=== PATIENT | female | born 1940 | race Caucasian/White ===

== ENCOUNTER 2020-11-19 21:25 | Inpatient (IN) ==
[2020-11-19 22:56] LABS: Mean Platelet Volume 9.3 fL (9.4-12.4); Platelet Count 225 K/mcL (140-400)
[2020-11-19 22:58] LABS: Hematocrit 32.5 % (35.3-44.9); Hemoglobin 10.2 g/dL (11.5-15.4); Mean Corpuscular HGB Conc 31.4 g/dL (31.6-35.5); Mean Corpuscular Hemoglobin 30.7 pg (28.0-33.3); Mean Corpuscular Volume 97.9 fL (83.0-100.0); Red Blood Count 3.32 M/mcL (3.82-4.97); Red Cell Distribution Width 13.4 % (11.5-14.5)
[2020-11-19 23:17] LABS: Alanine Aminotransferase 10 Units/L (7-52); Albumin 3.7 g/dL (3.5-5.7); Albumin/Globulin Ratio 1.6 (1.1-2.2); Alkaline Phosphatase 108 Units/L (34-104); Aspartate Amino Transferase 12 Units/L (13-39); BUN/Creatinine Ratio 24 (6-26); Bilirubin,Direct 0.4 mg/dL (0.0-0.2); Bilirubin,Indirect 0.5 mg/dL (0.0-1.0); Bilirubin,Total 0.9 mg/dL (0.3-1.0); Blood Urea Nitrogen 38 mg/dL (8-23); Calcium 8.5 mg/dL (8.6-10.3); Carbon Dioxide 20 mEq/L (23-29); Chloride 105 mEq/L (98-107); Creatine Kinase 116 Units/L (30-223); Globulin 2.3 g/dL (2.4-3.5); Glucose 152 mg/dL (70-105); Magnesium 2.3 mg/dL (1.6-2.6); Osmolality,Calculated 294 (280-300); Potassium 3.7 mEq/L (3.5-5.1); Sodium 136 mEq/L (136-145); Troponin I < 0.03 ng/mL (< 0.04); eGFR For African Americans 38 (> 60); eGFR For Non-African Americans 32 (> 60)
[2020-11-19] MEDS ORDERED: 0.9 % Sodium Chloride 1,000 ML IVC ONE (23:27)
[2020-11-19 23:30] LABS: Thyroid Stimulating Hormone 1.545 mcIU/mL (0.340-5.600)
[2020-11-20 00:30] LABS: Basophils % 0.1 %; Eosinophils % 0.1 %; Monocytes % 5.1 %
[2020-11-20 00:32] LABS: Basophils # 0.1 K/mcL (0.0-0.2); Eosinophils # 0.1 K/mcL (0.0-0.6); Hematocrit 31.2 % (35.3-44.9); Hemoglobin 9.7 g/dL (11.5-15.4); Immature Granulocytes % 1.2 % (0-4); Lymphocytes # 36.8 K/mcL (0.6-4.6); Lymphocytes % 67.7 %; Mean Corpuscular HGB Conc 31.1 g/dL (31.6-35.5); Mean Corpuscular Hemoglobin 30.4 pg (28.0-33.3); Mean Corpuscular Volume 97.8 fL (83.0-100.0); Mean Platelet Volume 9.7 fL (9.4-12.4); Monocytes # 2.8 K/mcL (0.0-1.3); Platelet Count 214 K/mcL (140-400); Red Blood Count 3.19 M/mcL (3.82-4.97); Red Cell Distribution Width 13.2 % (11.5-14.5); Segmented Neutrophils % 25.8 %
[2020-11-20 00:35] LABS: White Blood Count 54.4 K/mcL (4.3-11.1)
[2020-11-20 01:05] LABS: Anisocytosis 1+ (Not Present); Platelet Estimate Normal (Normal); Reactive Lymphocytes Present (Not Present); Smudge Cells Present (Not Present)
[2020-11-20] MEDS ORDERED: cefTRIAXone 1,000 MG in 0.9 % Sodium Chloride Mini Bag 100 ML IVPB ONE (01:34)
[2020-11-20] MEDS ORDERED: Azithromycin 500 MG in 0.9 % Sodium Chloride 250 ML IVPB ONE (01:34)
[2020-11-20 02:02] LABS: Bacteria,Urine Moderate per hpf (None-Few); Bilirubin,Urine Negative (Negative); Blood,Urine Moderate (Negative); Clarity,Urine Ex.Turbid (Clear); Color,Urine Yellow (Yellow); Glucose,Urine (UA) Normal (Normal); Ketones,Urine Negative (Negative); Leukocyte Esterase,Urine Large (Negative); Mucus,Urine Moderate per lpf (None-Few); Nitrite,Urine Negative (Negative); Protein,Urine >=300 mg/dL (Neg-Trace); RBC,Urine 15-30 per hpf (0-3); Specific Gravity,Urine 1.019 (1.010-1.025); Squamous Epithelial Cell,Urine Few per hpf (None-Few); Urobilinogen,Urine Normal (Normal); WBC,Urine TNTC per hpf (0-3)
[2020-11-20] MEDS ORDERED: Ondansetron ODT 4 MG TAB.RAPDIS SL PRN (02:23)
[2020-11-20] MEDS ORDERED: Naloxone 0.4 MG/ML INJ IVP PRN (02:23)
[2020-11-20] MEDS: 0.9 % Sodium Chloride 1,000 ML IVC SCH ×2 (04:02→15:49)
[2020-11-20 05:23] LABS: Basophils # 0.1 K/mcL (0.0-0.2); Basophils % 0.3 %; Eosinophils % 0.1 %; Hematocrit 28.9 % (35.3-44.9); Hemoglobin 9.1 g/dL (11.5-15.4); Immature Granulocytes % 0.9 % (0-4); Lymphocytes # 22.6 K/mcL (0.6-4.6); Lymphocytes % 58.9 %; Mean Corpuscular HGB Conc 31.5 g/dL (31.6-35.5); Mean Corpuscular Hemoglobin 30.1 pg (28.0-33.3); Mean Corpuscular Volume 95.7 fL (83.0-100.0); Mean Platelet Volume 9.4 fL (9.4-12.4); Monocytes % 6.1 %; Neutrophils # 12.9 K/mcL (1.6-8.9); Nucleated Red Blood Cells 0.1 /100 WBC (0); Platelet Count 208 K/mcL (140-400); Red Blood Count 3.02 M/mcL (3.82-4.97); Red Cell Distribution Width 13.5 % (11.5-14.5); Segmented Neutrophils % 33.7 %
[2020-11-20 05:28] LABS: Monocytes # 2.3 K/mcL (0.0-1.3); White Blood Count 38.4 K/mcL (4.3-11.1)
[2020-11-20 05:41] LABS: Anisocytosis 1+ (Not Present); Platelet Estimate Normal (Normal); Reactive Lymphocytes Present (Not Present); Smudge Cells Present (Not Present)
[2020-11-20 05:42] LABS: Calcium 7.9 mg/dL (8.6-10.3); Magnesium 1.9 mg/dL (1.6-2.6); Phosphorous 2.6 mg/dL (2.7-4.5); Potassium 3.8 mEq/L (3.5-5.1)
[2020-11-20] MEDS ORDERED: Potassium Phosphate 44 MEQ in 0.9 % Sodium Chloride 250 ML IVPB ONE (08:03)
[2020-11-20] MEDS: cefTRIAXone 1,000 MG in Water for inj. (sterile) 10 ML IVP SCH (20:56)
[2020-11-20] MEDS: Gabapentin 300 MG CAPSULE PO SCH (20:56)
[2020-11-21] MEDS: Levalbuterol Neb 1.25 MG/3 ML IH PRN ×2 (04:39→14:19)
[2020-11-21 07:06] LABS: Mean Corpuscular HGB Conc 31.1 g/dL (31.6-35.5); Mean Platelet Volume 9.5 fL (9.4-12.4)
[2020-11-21 07:07] LABS: Immature Reticulocyte % 14.3 % (11.0-38.0); Retculocyte # 0.02 M/mcL (0.05-0.10); Reticulocyte % 0.9 % (1.6-2.8)
[2020-11-21 07:08] LABS: Hemoglobin 8.4 g/dL (11.5-15.4); Mean Corpuscular Hemoglobin 30.7 pg (28.0-33.3); Mean Corpuscular Volume 98.5 fL (83.0-100.0); Platelet Count 200 K/mcL (140-400); Red Blood Count 2.74 M/mcL (3.82-4.97); Red Cell Distribution Width 13.8 % (11.5-14.5)
[2020-11-21 07:16] LABS: White Blood Count 34.5 K/mcL (4.3-11.1)
[2020-11-21 07:26] LABS: Lymphocytes # 17.9 K/mcL (0.6-4.6); Monocytes # 1.4 K/mcL (0.0-1.3); Neutrophils # 15.2 K/mcL (1.6-8.9); Platelet Estimate Normal (Normal); Smudge Cells Present (Not Present)
[2020-11-21 07:27] LABS: Calcium 7.3 mg/dL (8.6-10.3); Potassium 3.9 mEq/L (3.5-5.1); Reactive Lymphocytes Present (Not Present)
[2020-11-21 07:32] LABS: Iron < 10 mcg/dL (50-170); Lactate Dehydrogenase 139 Units/L (140-271); Transferrin 132 mg/dL (203-362)
[2020-11-21 07:59] LABS: Ferritin 201 ng/mL (10-120)
[2020-11-21] MEDS ORDERED: 0.9 % Sodium Chloride 500 ML IVC ONE (08:01)
[2020-11-21 08:27] LABS: Magnesium 1.9 mg/dL (1.6-2.6); Phosphorous 2.7 mg/dL (2.7-4.5)
[2020-11-21] MEDS: Iron Sucrose Complex 250 MG in 0.9 % Sodium Chloride 250 ML IVPB SCH (08:49)
[2020-11-21] MEDS: Gabapentin 300 MG CAPSULE PO SCH ×2 (08:50→20:51)
[2020-11-21] MEDS: 0.9 % Sodium Chloride 1,000 ML IVC SCH ×2 (09:12→17:04)
[2020-11-21] MEDS: *HR* Heparin 5,000 UNIT/ML VIAL SQ SCH (17:05)
[2020-11-21] MEDS: cefTRIAXone 1,000 MG in Water for inj. (sterile) 10 ML IVP SCH (20:51)
[2020-11-21] MEDS: Melatonin 3 MG TABLET PO PRN (23:15)
[2020-11-22 06:08] LABS: Mean Corpuscular Hemoglobin 30.2 pg (28.0-33.3)
[2020-11-22 06:10] LABS: Basophils # 0.1 K/mcL (0.0-0.2); Basophils % 0.3 %; Eosinophils # 0.3 K/mcL (0.0-0.6); Eosinophils % 1.2 %; Hematocrit 27.7 % (35.3-44.9); Hemoglobin 8.7 g/dL (11.5-15.4); Immature Granulocytes % 1.4 % (0-4); Lymphocytes # 17.9 K/mcL (0.6-4.6); Lymphocytes % 63.5 %; Mean Corpuscular HGB Conc 31.4 g/dL (31.6-35.5); Mean Corpuscular Volume 96.2 fL (83.0-100.0); Mean Platelet Volume 9.3 fL (9.4-12.4); Monocytes # 0.9 K/mcL (0.0-1.3); Monocytes % 3.2 %; Neutrophils # 8.6 K/mcL (1.6-8.9); Platelet Count 250 K/mcL (140-400); Red Blood Count 2.88 M/mcL (3.82-4.97); Red Cell Distribution Width 13.9 % (11.5-14.5); Segmented Neutrophils % 30.4 %; White Blood Count 28.2 K/mcL (4.3-11.1)
[2020-11-22 06:21] LABS: BUN/Creatinine Ratio 27 (6-26); Blood Urea Nitrogen 28 mg/dL (8-23); Calcium 7.4 mg/dL (8.6-10.3); Carbon Dioxide 19 mEq/L (23-29); Chloride 115 mEq/L (98-107); Glucose 112 mg/dL (70-105); Osmolality,Calculated 300 (280-300); Potassium 3.9 mEq/L (3.5-5.1); Sodium 142 mEq/L (136-145); eGFR For African Americans > 60 (> 60); eGFR For Non-African Americans 51 (> 60)
[2020-11-22 06:32] LABS: Platelet Estimate Normal (Normal); Reactive Lymphocytes Present (Not Present); Smudge Cells Present (Not Present)
[2020-11-22] MEDS: *HR* Heparin 5,000 UNIT/ML VIAL SQ SCH ×2 (06:34→17:24)
[2020-11-22] MEDS: Levalbuterol Neb 1.25 MG/3 ML IH PRN (06:44)
[2020-11-22] MEDS: Gabapentin 300 MG CAPSULE PO SCH ×2 (08:28→21:01)
[2020-11-22] MEDS: Iron Sucrose Complex 250 MG in 0.9 % Sodium Chloride 250 ML IVPB SCH (08:31)
[2020-11-22] MEDS: cefTRIAXone 1,000 MG in Water for inj. (sterile) 10 ML IVP SCH (21:01)
[2020-11-22] MEDS: Melatonin 3 MG TABLET PO PRN (22:35)
[2020-11-23 01:32] LABS: Lymphocytes % 64.2 %; Red Cell Distribution Width 13.9 % (11.5-14.5)
[2020-11-23 01:33] LABS: Basophils # 0.1 K/mcL (0.0-0.2); Basophils % 0.5 %; Eosinophils # 0.5 K/mcL (0.0-0.6); Eosinophils % 2.1 %; Hematocrit 26.8 % (35.3-44.9); Hemoglobin 8.3 g/dL (11.5-15.4); Lymphocytes # 16.4 K/mcL (0.6-4.6); Mean Corpuscular Hemoglobin 30.6 pg (28.0-33.3); Mean Corpuscular Volume 98.9 fL (83.0-100.0); Mean Platelet Volume 9.3 fL (9.4-12.4); Monocytes # 0.7 K/mcL (0.0-1.3); Monocytes % 2.7 %; Neutrophils # 7.3 K/mcL (1.6-8.9); Platelet Count 279 K/mcL (140-400); Red Blood Count 2.71 M/mcL (3.82-4.97); Segmented Neutrophils % 28.5 %; White Blood Count 25.5 K/mcL (4.3-11.1)
[2020-11-23 01:39] LABS: Platelet Estimate Normal (Normal); Reactive Lymphocytes Present (Not Present); Smudge Cells Present (Not Present)
[2020-11-23 01:47] LABS: Magnesium 1.8 mg/dL (1.6-2.6); Phosphorous 2.3 mg/dL (2.7-4.5)
[2020-11-23 01:49] LABS: BUN/Creatinine Ratio 26 (6-26); Blood Urea Nitrogen 24 mg/dL (8-23); Calcium 7.6 mg/dL (8.6-10.3); Carbon Dioxide 19 mEq/L (23-29); Chloride 114 mEq/L (98-107); Glucose 107 mg/dL (70-105); Osmolality,Calculated 297 (280-300); Potassium 3.9 mEq/L (3.5-5.1); Sodium 141 mEq/L (136-145); eGFR For African Americans > 60 (> 60); eGFR For Non-African Americans 57 (> 60)
[2020-11-23] MEDS: *HR* Heparin 5,000 UNIT/ML VIAL SQ SCH ×2 (06:20→17:06)
[2020-11-23] MEDS: Levalbuterol Neb 1.25 MG/3 ML IH PRN (06:38)
[2020-11-23] MEDS: Gabapentin 300 MG CAPSULE PO SCH ×2 (08:28→22:06)
[2020-11-23] MEDS: Iron Sucrose Complex 250 MG in 0.9 % Sodium Chloride 250 ML IVPB SCH (08:28)
[2020-11-23] MEDS: Nitrofurantoin (BID) 100 MG CAPSULE PO SCH (17:06)
[2020-11-23 19:35] LABS: Adenovirus Not Detected (Not Detect); Bordetella Pertussis Not Detected (Not Detect); Chlamydophila pneumoniae Not Detected (Not Detect); Coronavirus 229E Not Detected (Not Detect); Coronavirus HKU1 Not Detected (Not Detect); Coronavirus NL63 Not Detected (Not Detect); Coronavirus OC43 Not Detected (Not Detect); Human Metapneumovirus Not Detected (Not Detect); Human Rhinovirus/Enterovirus DETECTED (Not Detect); Influenza A Subtype 2009 H1 Not Detected (Not Detect); Influenza B Not Detected (Not Detect); Mycoplasma pneumoniae Not Detected (Not Detect); Parainfluenza Virus 1 Not Detected (Not Detect); Parainfluenza Virus 2 Not Detected (Not Detect); Parainfluenza Virus 3 Not Detected (Not Detect); Parainfluenza Virus 4 Not Detected (Not Detect); Respiratory Syncytial Virus Not Detected (Not Detect); SARS-CoV-2 Not Detected (Not Detect)
[2020-11-24] MEDS: *HR* Heparin 5,000 UNIT/ML VIAL SQ SCH (05:33)
[2020-11-24] MEDS: Nitrofurantoin (BID) 100 MG CAPSULE PO SCH (09:26)
[2020-11-24] MEDS: Gabapentin 300 MG CAPSULE PO SCH (09:26)
[2020-11-24 10:22] VITALS: BP 160/79
== END 2020-11-24 16:46 | disposition critical access hospital (66) | DRG 872 ==
LOC: EMEROOARM 21:25 → 3ANU 21:25 → SUATTDRO 11-20 01:55 → 3ANU 11-20 03:37 → SUATTDRO 11-21 14:12
PROVIDERS: ADMIT Student in an Organized Health Care Education/Training Program; ATTEND Internal Medicine

== ENCOUNTER 2021-01-30 16:46 | Inpatient (IN) ==
[2021-01-30] MEDS ORDERED: Melatonin 3 MG TABLET PO PRN (20:39)
[2021-01-30] MEDS ORDERED: Naloxone 0.4 MG/ML INJ IVP PRN (20:39)
[2021-01-30] MEDS ORDERED: Acetaminophen 325 MG TABLET PO PRN (20:39)
[2021-01-30] MEDS ORDERED: Ondansetron 4 MG/2 ML VIAL IVP PRN (20:39)
[2021-01-30] MEDS ORDERED: Perflutren Lipid Microsphere 1.3 ML in 0.9 % Sodium Chloride 8.7 ML IVP PRN (20:48)
[2021-01-31 06:57] LABS: Mean Platelet Volume 9.5 fL (9.4-12.4)
[2021-01-31 06:58] LABS: Hematocrit 35.9 % (35.3-44.9); Hemoglobin 11.8 g/dL (11.5-15.4); Mean Corpuscular HGB Conc 32.9 g/dL (31.6-35.5); Mean Corpuscular Hemoglobin 32.3 pg (28.0-33.3); Mean Corpuscular Volume 98.4 fL (83.0-100.0); Platelet Count 190 K/mcL (140-400); Red Blood Count 3.65 M/mcL (3.82-4.97); Red Cell Distribution Width 14.7 % (11.5-14.5)
[2021-01-31 06:59] LABS: INR 1.1; Prothrombin Time 12.8 Seconds (9.4-12.1)
[2021-01-31 07:14] LABS: White Blood Count 38.9 K/mcL (4.3-11.1)
[2021-01-31 07:29] LABS: Alanine Aminotransferase 6 Units/L (7-52); Albumin 4.3 g/dL (3.5-5.7); Albumin/Globulin Ratio 2.7 (1.1-2.2); Alkaline Phosphatase 62 Units/L (34-104); Aspartate Amino Transferase 8 Units/L (13-39); BUN/Creatinine Ratio 33 (6-26); Bilirubin,Total 0.6 mg/dL (0.3-1.0); Blood Urea Nitrogen 28 mg/dL (8-23); Carbon Dioxide 26 mEq/L (23-29); Chloride 108 mEq/L (98-107); Cholesterol 155 mg/dL (< 200); Globulin 1.6 g/dL (2.4-3.5); Glucose 101 mg/dL (70-105); HDL Cholesterol 31 mg/dL (40-59); Magnesium 2.1 mg/dL (1.6-2.6); Osmolality,Calculated 300 (280-300); Phosphorous 3.4 mg/dL (2.7-4.5); Sodium 142 mEq/L (136-145); Total Protein 5.9 g/dL (6.4-8.9); Triglycerides 129 mg/dL (< 150); Troponin I < 0.03 ng/mL (< 0.04); eGFR For African Americans > 60 (> 60); eGFR For Non-African Americans > 60 (> 60)
[2021-01-31 07:30] LABS: Eosinophils # 0.8 K/mcL (0.0-0.6); LDL Cholesterol,Calculated 98 mg/dL (< 100); Lymphocytes # 31.1 K/mcL (0.6-4.6); Platelet Estimate Normal (Normal); Reactive Lymphocytes Present (Not Present)
[2021-01-31 07:31] LABS: Smudge Cells Present (Not Present)
[2021-01-31 09:48] LABS: Estimated Average Glucose 111 mg/dl; Hemoglobin A1C 5.5 %
[2021-01-31] MEDS ORDERED: Perflutren Lipid Microsphere 1.3 ML in 0.9 % Sodium Chloride 8.7 ML IVP PRN (16:03)
[2021-01-31] MEDS ORDERED: Gadolinium Contrast Agent (WT Based) IV PRN (16:48)
[2021-01-31] MEDS: Aspirin 81 MG TAB.CHEW PO SCH (17:25)
[2021-01-31] MEDS: Gabapentin 300 MG CAPSULE PO SCH (20:58)
[2021-02-01 08:31] LABS: Mean Platelet Volume 9.6 fL (9.4-12.4)
[2021-02-01 08:32] LABS: Hematocrit 38.6 % (35.3-44.9); Hemoglobin 12.3 g/dL (11.5-15.4); Mean Corpuscular HGB Conc 31.9 g/dL (31.6-35.5); Mean Corpuscular Hemoglobin 31.1 pg (28.0-33.3); Mean Corpuscular Volume 97.5 fL (83.0-100.0); Platelet Count 199 K/mcL (140-400); Red Blood Count 3.96 M/mcL (3.82-4.97); Red Cell Distribution Width 14.6 % (11.5-14.5)
[2021-02-01 08:38] LABS: White Blood Count 39.4 K/mcL (4.3-11.1)
[2021-02-01 08:56] LABS: Alanine Aminotransferase 7 Units/L (7-52); Albumin 4.7 g/dL (3.5-5.7); Albumin/Globulin Ratio 2.9 (1.1-2.2); Alkaline Phosphatase 75 Units/L (34-104); Aspartate Amino Transferase 10 Units/L (13-39); BUN/Creatinine Ratio 29 (6-26); Bilirubin,Total 0.8 mg/dL (0.3-1.0); Blood Urea Nitrogen 26 mg/dL (8-23); Calcium 9.1 mg/dL (8.6-10.3); Carbon Dioxide 27 mEq/L (23-29); Chloride 108 mEq/L (98-107); Globulin 1.6 g/dL (2.4-3.5); Glucose 102 mg/dL (70-105); Osmolality,Calculated 299 (280-300); Potassium 3.9 mEq/L (3.5-5.1); Sodium 142 mEq/L (136-145); Total Protein 6.3 g/dL (6.4-8.9); eGFR For African Americans > 60 (> 60); eGFR For Non-African Americans > 60 (> 60)
[2021-02-01] MEDS: Aspirin 81 MG TAB.CHEW PO SCH (09:02)
[2021-02-01] MEDS: Gabapentin 300 MG CAPSULE PO SCH ×3 (09:03→20:31)
[2021-02-01] MEDS ORDERED: Isovue-370 500 ML BOTTLE IVP ONE (09:32)
[2021-02-01 18:56] LABS: HIV-1&2 Antibody & p24 Ag Nonreactive (Nonreactive)
[2021-02-02 06:54] LABS: Hematocrit 36.5 % (35.3-44.9); Mean Corpuscular HGB Conc 32.9 g/dL (31.6-35.5); Mean Corpuscular Hemoglobin 32.3 pg (28.0-33.3); Mean Corpuscular Volume 98.1 fL (83.0-100.0); Mean Platelet Volume 9.6 fL (9.4-12.4); Platelet Count 177 K/mcL (140-400); Red Blood Count 3.72 M/mcL (3.82-4.97); Red Cell Distribution Width 14.3 % (11.5-14.5)
[2021-02-02 06:56] LABS: White Blood Count 38.6 K/mcL (4.3-11.1)
[2021-02-02 07:24] LABS: Alanine Aminotransferase 6 Units/L (7-52); Albumin 4.3 g/dL (3.5-5.7); Albumin/Globulin Ratio 2.7 (1.1-2.2); Alkaline Phosphatase 67 Units/L (34-104); Aspartate Amino Transferase 9 Units/L (13-39); BUN/Creatinine Ratio 33 (6-26); Bilirubin,Total 0.5 mg/dL (0.3-1.0); Blood Urea Nitrogen 30 mg/dL (8-23); Calcium 9.2 mg/dL (8.6-10.3); Carbon Dioxide 24 mEq/L (23-29); Chloride 108 mEq/L (98-107); Globulin 1.6 g/dL (2.4-3.5); Glucose 97 mg/dL (70-105); Osmolality,Calculated 298 (280-300); Sodium 141 mEq/L (136-145); Total Protein 5.9 g/dL (6.4-8.9); eGFR For African Americans > 60 (> 60); eGFR For Non-African Americans > 60 (> 60)
[2021-02-02] MEDS: Aspirin 81 MG TAB.CHEW PO SCH (08:02)
[2021-02-02] MEDS: Gabapentin 300 MG CAPSULE PO SCH ×3 (08:02→20:20)
[2021-02-03 02:15] LABS: Mean Corpuscular Volume 98.4 fL (83.0-100.0)
[2021-02-03 02:17] LABS: Hematocrit 36.3 % (35.3-44.9); Hemoglobin 11.6 g/dL (11.5-15.4); Mean Corpuscular Hemoglobin 31.4 pg (28.0-33.3); Mean Platelet Volume 9.4 fL (9.4-12.4); Platelet Count 190 K/mcL (140-400); Red Blood Count 3.69 M/mcL (3.82-4.97); Red Cell Distribution Width 14.3 % (11.5-14.5)
[2021-02-03 02:26] LABS: White Blood Count 41.7 K/mcL (4.3-11.1)
[2021-02-03 04:51] LABS: Alanine Aminotransferase 6 Units/L (7-52); Albumin 4.3 g/dL (3.5-5.7); Albumin/Globulin Ratio 2.9 (1.1-2.2); Alkaline Phosphatase 65 Units/L (34-104); Aspartate Amino Transferase 9 Units/L (13-39); BUN/Creatinine Ratio 38 (6-26); Bilirubin,Total 0.5 mg/dL (0.3-1.0); Blood Urea Nitrogen 34 mg/dL (8-23); Carbon Dioxide 20 mEq/L (23-29); Chloride 109 mEq/L (98-107); Globulin 1.5 g/dL (2.4-3.5); Glucose 98 mg/dL (70-105); Osmolality,Calculated 298 (280-300); Potassium 3.9 mEq/L (3.5-5.1); Sodium 140 mEq/L (136-145); Total Protein 5.8 g/dL (6.4-8.9); eGFR For African Americans > 60 (> 60); eGFR For Non-African Americans > 60 (> 60)
[2021-02-03] MEDS: Aspirin 81 MG TAB.CHEW PO SCH (08:39)
[2021-02-03] MEDS: Gabapentin 300 MG CAPSULE PO SCH ×3 (08:39→19:42)
[2021-02-04 05:40] LABS: Red Cell Distribution Width 14.5 % (11.5-14.5)
[2021-02-04 05:41] LABS: Hematocrit 36.1 % (35.3-44.9); Hemoglobin 11.5 g/dL (11.5-15.4); Mean Corpuscular HGB Conc 31.9 g/dL (31.6-35.5); Mean Corpuscular Hemoglobin 31.5 pg (28.0-33.3); Mean Corpuscular Volume 98.9 fL (83.0-100.0); Mean Platelet Volume 9.6 fL (9.4-12.4); Platelet Count 187 K/mcL (140-400); Red Blood Count 3.65 M/mcL (3.82-4.97)
[2021-02-04 05:47] LABS: White Blood Count 38.4 K/mcL (4.3-11.1)
[2021-02-04 06:04] LABS: Alanine Aminotransferase 6 Units/L (7-52); Albumin 4.4 g/dL (3.5-5.7); Albumin/Globulin Ratio 3.1 (1.1-2.2); Alkaline Phosphatase 67 Units/L (34-104); Aspartate Amino Transferase 8 Units/L (13-39); BUN/Creatinine Ratio 37 (6-26); Bilirubin,Total 0.5 mg/dL (0.3-1.0); Blood Urea Nitrogen 34 mg/dL (8-23); Calcium 9.2 mg/dL (8.6-10.3); Carbon Dioxide 25 mEq/L (23-29); Chloride 107 mEq/L (98-107); Globulin 1.4 g/dL (2.4-3.5); Glucose 104 mg/dL (70-105); Osmolality,Calculated 298 (280-300); Potassium 3.9 mEq/L (3.5-5.1); Sodium 140 mEq/L (136-145); Total Protein 5.8 g/dL (6.4-8.9); eGFR For African Americans > 60 (> 60); eGFR For Non-African Americans 60 (> 60)
[2021-02-04] MEDS: Gabapentin 300 MG CAPSULE PO SCH ×3 (08:43→20:51)
[2021-02-04] MEDS: Aspirin 81 MG TAB.CHEW PO SCH (08:43)
[2021-02-04 11:09] LABS: Toxoplasma gondii Ab, IgG <3.0 IU/mL; Toxoplasma gondii Ab, IgM <3.0 AU/mL (<=7.9)
[2021-02-05] MEDS: Aspirin 81 MG TAB.CHEW PO SCH (08:45)
[2021-02-05] MEDS: Gabapentin 300 MG CAPSULE PO SCH ×3 (08:45→19:45)
[2021-02-06] MEDS: Aspirin 81 MG TAB.CHEW PO SCH (07:13)
[2021-02-06] MEDS: Gabapentin 300 MG CAPSULE PO SCH ×2 (07:15→15:50)
[2021-02-06 14:45] VITALS: BP 151/79
[2021-02-06 18:50] LABS: Influenza A PCR Negative (Negative); Influenza B PCR Negative (Negative); Resp. Syncytial Virus PCR Negative (Negative)
[2021-02-06 19:02] LABS: SARS-CoV-2 by PCR (In House) Negative (Negative)
== END 2021-02-06 19:58 | disposition critical access hospital (66) | DRG 69 ==
LOC: 3BNU → SUATTDRO 20:14
PROVIDERS: ADMIT Internal Medicine; ATTEND Registered Nurse